=== PATIENT | male | born 1960 | race Caucasian/White ===

== ENCOUNTER 2017-12-28 19:23 | Emergency (ER) | payer BC ==
--- NOTE | 2017-12-28 21:21 | UC ---
FLU HPI - HPI Summary HPI Summary: 57 y/o male presents to the urgent care c/o productive cough w/ yellowish phlegm , body aches, b/l ear pressure, nasal congestion, VALENTIN and subjective fever since 12/24/2017. Pt Returned from [place] about a week ago. Then he develop flu like symptoms. He has taking Sudafed, Nyquill PO to alleviate symptoms. Cough is not allowing him to sleep well. Pt denies SOB, wheezing, chest pain, abdominal pain, N/V/D - History of Current Complaint Stated Complaint: FLU-LIKE SYMPTOMS,COUGH Time Seen by Provider: 12/28/17 21:19 Hx Obtained From: Patient Onset/Duration: Gradual Onset, Lasting Weeks - 1, Still Present, Worse Since - yesterday Severity Currently: Mild Severity Initially: Moderate Pain Intensity: 2 Pain Scale Used: 0-10 Numeric Associated Signs & Symptoms: Positive: Fever, Myalgia, Cough, Sore Throat, Nasal Congestion, Headache - Risk Factors Influenza Risk Factors: Negative - Allergy/Home Medications Allergies/Adverse Reactions: Allergies Allergy/AdvReac Type Severity Reaction Status Date / Time No Known Allergies Allergy Verified 12/28/17 21:17 Home Medications: Home Medications D-Methorphan/PE/Acetaminophen [Gnp Day Time Cold/Flu Rel] 1 liq PO ONCE [History Confirmed 12/28/17] PMH/Surg Hx/FS Hx/Imm Hx Previously Healthy: Yes - Pt denies PMHX - Surgical History Surgical History: Yes Surgery Procedure, Year, and Place: LASER BRAIN( bleed)SURGERY, LIVER SURGERY ( [place]), LEFT ACHILLES TENDON - Family History Known Family History: Positive: Cardiac Disease, Hypertension, Diabetes - Social History Occupation: Employed Full-time Lives: With Family Alcohol Use: Occasionally Substance Use Type: None Smoking Status (MU): Never Smoked Tobacco Review of Systems Constitutional: Fever, Chills, Fatigue, Other - body aches Skin: Negative Eyes: Negative ENT: Sore Throat, Ear Ache - B/L ear pressure, Nasal Discharge Respiratory: Cough - w/ yellowish phlegm and brown streaks Cardiovascular: Negative Gastrointestinal: Negative Genitourinary: Negative Motor: Negative Neurovascular: Negative Musculoskeletal: Negative Neurological: Headache Psychological: Negative Is Patient Immunocompromised?: No All Other Systems Reviewed And Are Negative: Yes Physical Exam - Summary Physical Exam Summary: Vital Signs Reviewed: Yes General: well developed, well nourished male sitting in the examining table w/o any apparent distress Eyes: Positive: Conjunctiva Clear - PERRLA, EOMI, fundi grossly normal ENT: Positive: Normal ENT inspection, Hearing grossly normal, Pharynx normal, Nasal congestion - edematous and erythematous nasal mucosa, Nasal drainage - yellowish drainage, TMs normal. Negative: Tonsillar swelling, Tonsillar exudate Neck: Positive: Supple, Nontender, No Lymphadenopathy Respiratory: no orthopnea or dyspnea. Able to speak in full sentences, no retractions or accessory muscle use, no tripod position, stridor, or head bobbing. Positive breaths sounds bilaterally, B/l upper lungs w/ mild scattered rhonchi, no wheezes, crackles , rales. Cardiovascular: Positive: RRR, No Murmur, Pulses Normal, Brisk Capillary Refill Abdomen Description: Positive: Nontender, No Organomegaly, Soft. Negative: CVA Tenderness (R), CVA Tenderness (L) Bowel Sounds: Positive: Present Musculoskeletal Exam: Normal Musculoskeletal: Positive: Strength Intact, ROM Intact, No Edema Neurological Exam: Normal Psychological Exam: Normal Skin Exam: Normal Triage Information Reviewed: Yes Flu Course/Dx - Course Course Of Treatment: 57 y/o male presents to the urgent care c/o productive cough w/ yellowish phlegm, body aches, b/l ear pressure, nasal congestion, VALENTIN and subjective fever since 12/24/2017. Pt Returned from [place] about a week ago. Then he develop flu like symptoms. He has taking Sudafed, Nyquill PO to alleviate symptoms. Cough is not allowing him to sleep well. Pt denies SOB, wheezing, chest pain, abdominal pain, N/V/D. Hx obtained. Pt w/ and URI and B/ L posterior lungs w/ scattered rhonchi on examination. Influenza a&B ordered: negative. Pt Rx Z-zee PO and Advised to continue w/ Nyquill PO for cough. Pt advised to increase fluid intake and eat well. if not improvement or worsening of symptoms to return to the urgent care or f/u with PCP for further management. Pt's BP is elevated today advised to decrease salt in diet, monitor BP and f/u with PCP for further management. Pt understood and agreed with plan of care. - Differential Dx/Diagnosis Differential Diagnosis/HQI/PQRI: Bronchitis, Influenza, Pneumonia, Upper Respiratory Infection Provider Diagnoses: 1- Acute bronchitis. 2-Cough. 3- Elevated BP w/o Hx of HTN Discharge - Sign-Out/Discharge Documenting (check all that apply): Discharge - Discharge Plan Condition: Stable Disposition: HOME Prescriptions: Azithromycin TAB* [Zithromax TAB (Z-ZEE) 250 mg #6 tabs] 250 mg PO DAILY #4 tab Patient Education Materials: Acute Bronchitis (ED), Low-Sodium Diet (ED) Referrals: Aureliano Yeboah MD [Primary Care Provider] - 3 Days Additional Instructions: 1-Please take full course of antibiotic to avoid resistance. 2-Continue taking Nyquill PO tabs to alleviate cough. Increase fluid intake, rest and eat well. 3- If symptoms do not improve or worsen or your develop SOB with fever and severe wheezing please go immediately to the ER further evaluation and treatment. 4- F/u with your PCP in 2-3 days for further management. 5-Your BP is elevated today. please decrease salt in your diet, monitor BP and if it continues to be elevated please f/u with your PCP for further management - Billing Disposition and Condition Condition: STABLE Disposition: HOME
[2017-12-28 21:23] VITALS: BP 143/84
[2017-12-28] MEDS ORDERED: Azithromycin TAB* 250 MG PO ONE (21:50)
== END 2017-12-28 22:25 | disposition home or self-care (01) ==
LOC: UCEAST 19:23
DX: J20.9 Acute bronchitis, unspecified (principal); R03.0 Elevated blood-pressure reading, without diagnosis of hypertension
CPT/HCPCS: 87502; 99212; A9270-GY; G0463